=== PATIENT | male | born 1965 | race Caucasian/White ===

== ENCOUNTER 2020-08-02 08:12 | Outpatient (REF) | payer BC, SELFPAY | END 2020-08-02 08:13 | disposition home or self-care (01) | LOC: HO.LAB 08:12 | PROVIDERS: Visit Provider Internal Medicine | DX: Z20.828 Contact with and (suspected) exposure to other viral communicable diseases (principal) | CPT/HCPCS: 36415; C9803; U0003 ==

== ENCOUNTER 2024-02-03 17:06 | Emergency (ER) | payer OTHER, BC, SELFPAY ==
--- NOTE | ~2024-02-03 | US_ITS ---
EXAMINATION: US VENOUS ULTRASOUND WITH DOPPLER LOWER EXTREMITY, RIGHT CLINICAL INFORMATION: Lower extremity redness COMPARISON: None available. TECHNIQUE: Ultrasound of the deep veins is performed from the hip to the calf with compression sonography and color and pulse Doppler assessment. Spectral analysis with color-flow imaging is performed. FINDINGS: There is normal venous compression and respiratory variation and augmented flow. The visualized common femoral vein, superficial femoral vein, profunda femoral vein, popliteal vein, and the trifurcation region shows no evidence of deep venous thrombosis. There is no significant popliteal fossa cyst. If the patient's symptoms persist, followup ultrasound in 5 days 7 days might be of value to exclude proximal propagation from a non-visualized calf vein. US/US venous duplex LE RT IMPRESSION: No DVT demonstrated in the right lower extremity.
--- NOTE | ~2024-02-03 | XR_ITS ---
EXAMINATION: XR KNEE, RIGHT CLINICAL INFORMATION: Pain, swelling COMPARISON: None available. TECHNIQUE: Four views of the right knee. FINDINGS: No fracture or joint effusion. Alignment is anatomic. Mild medial compartment osteoarthritis. Patellar enthesophytes. No abnormal soft tissue calcification. XR/XR knee RT 4V IMPRESSION: Mild medial compartment OA. No acute fractures or dislocations. No joint effusion.
[2024-02-03 17:25] VITALS: BP 129/84; PULSE 69; RESP 20; TEMP 36.2; O2SAT 97; BMI 27.3
--- NOTE | 2024-02-03 17:26 | ED_ITS ---
HPI - Extremity Injury (Lower) General Chief Complaint: Extremity Injury, Lower Stated Complaint: Last sat, swollen calf from work injury Time Seen by Provider: 02/03/24 19:01 Source: patient Mode of arrival: ambulatory Limitations: no limitations History of Present Illness HPI Narrative: 58-year-old male presents for evaluation of pain to the right leg. Patient states that on January 27, while at work he was kneeling which he does repetitively and began to have pain at the right knee. He had some mild swelling at that time which has since resolved. Patient does repetitive use with kneeling to the right knee as part of his job. Has had edema and pain to this knee on and off for many years. Patient states the pain had resolved from the right knee but now his right calf was tender and swollen. There is no erythema. Denies any chest pain or shortness of breath. No dyspnea on exertion. No history of similar symptoms. Denies any repeat trauma. He has not tried any medication for this. Related Data Allergies Allergy/AdvReac Type Severity Reaction Status Date / Time No Known Allergies Allergy Verified 02/03/24 17:26 Review of Systems Constitutional: Constitutional: Denies chills and Denies fever(s) Cardiovascular: Cardiovascular: Denies chest pain, Denies dyspnea, Denies dyspnea on exertion and Denies orthopnea Respiratory: Respiratory: Denies cough, Denies dyspnea and Denies dyspnea on exertion Gastrointestinal: Gastrointestinal: Denies abdominal pain, Denies melena, Denies hematochezia, Denies diarrhea, Denies nausea and Denies vomiting Musculoskeletal: Musculoskeletal: Denies back pain, Denies muscle weakness and Denies numbness Integumentary/Breasts: Skin/Breast: Denies rash Neurologic: Denies focal weakness and Denies numbness Psychiatric: Psychiatric: Denies depression [facility] Past Medical History Attestation statement: The following information was validated with the patient. [facility] Narrative: Denies Social History Social History Advance Directives: No Advance Directives Information Provided: No Do you have a plan to hurt others: No Plan Physical Exam Vital Signs: Vital Signs: Last Vital Signs Temp 0 F L 02/03/24 20:01 Pulse 61 02/03/24 20:01 Resp 16 02/03/24 20:01 BP 153/94 H 02/03/24 20:01 Pulse Ox 98 02/03/24 20:01 O2 Del Method Room Air 02/03/24 20:01 BMI result Body Mass Index 27.3 Const: General: alert, awake and Physically active Extrem: Other: Patient is ambulatory in the emergency department without difficulty. He has full range of motion of the lower extremities. DP pulses are +1 and equal bilaterally. There is slight edema to the right calf when compared to the left. There is mild tenderness to the right calf. Negative Homans sign. There is no erythema or skin breakdown. There is fullness to the prepatellar right knee. No varus or valgus strain. Course Course Course Narrative: Patient is a 58-year-old male who presents emergency department for evaluation. He reports 1 week ago while at work he was doing frequent kneeling, he began noticing mild discomfort to the right knee. Subsequently over the past 5 days he has noticed progressive redness and swelling to the right calf. He admits to some intermittent discomfort to the calf. Reevaluation(s) Reevaluation #1: 7:50 p.m. the patient does not wish to wait for his official results of the x- ray and ultrasound. Patient understands that there may be findings that will require follow-up and is accepting of this and feels comfortable with discharge:. I have confirmed the patient's call back number, patient ambulatory at time of discharge. He has declined a work note no further questions at this time 9:55 p.m. imaging results returned, no acute process. I have contacted the patient and spoke with him directly to review the findings with him. Patient has no further questions at this time. Medical Decision Making Medical Decision Making [facility] Narrative: 58-year-old male with a 6 day history of right knee and right calf pain. Right knee pain has since resolved. Calf continues to be bothersome. Check x-ray of the right knee, ultrasound of the calf. Based on physical exam and history findings, suspect prepatellar bursitis due to the repetitive nature of his job. Patient is able to stand and bear weight. Differential Diagnosis Differential Diagnoses: The differential diagnosis associated with the presentation includes DVT Traumatic bursitis Muscle strain Fracture Continue Independent Interpretation I performed an independent interpretation of an: Plain X-Ray and Ultrasound Interpretation: X-ray right knee, no fracture, prepatellar fluid noted. Ultrasound right leg, no DVT Independent Historian Clinical information obtained from an independent historian. History obtained from or confirmed by: Spouse Prescription Management I considered prescription management with: Pain Medication (Patient denies) Discharge Plan Discharge Clinical Impression: Patellar bursitis of right knee Acute knee pain Qualifiers: Laterality: right Qualified Code(s): M25.561 - Pain in right knee Calf pain Qualifiers: Laterality: right Qualified Code(s): M79.661 - Pain in right lower leg Patient Disposition: Home, Self-Care Instructions: Knee Bursitis (ED), Knee Pain (ED), Leg Pain (ED) Additional Instructions: The official results of your x-ray and ultrasound are pending at this time. We will contact you if there are any concerns that require follow up. Rest. Avoid strenuous activity. Follow-up with your primary care provider. Call this week to schedule a follow- up appointment. Return to the emergency department if you have any worsening of symptoms, or any concerns. Get well soon! Interventions: ED Discharge Assessment Last Done: 02/03/24 20:01 Discharge Date/Time: 02/03/24 20:02 Print Language: Turkmen
[2024-02-03 18:00] VITALS: BP 153/94; PULSE 61; RESP 16; O2SAT 98
--- OUTSIDE RECORDS SUMMARY | 2024-02-03 19:17 | XMS_ITS | Continuity of Care Document ---
Author Organization [facility] Address [address] [place] [address]- Care Team Providers Care Cushion Assembler Name Role Phone Not on Staff, PCP Primary Care Physician Unavail able Encounter [facility] Date(s): 05/07/20 - 08/03/20 [facility] [address] [place] [address]- Attending Physician: Clarissa TOVAR, [place] Immunizations Given and Recorded Vaccine Date Status Refusal Reason Influenza Virus Vaccine (oldterm) 1 04/21/20 Recor ded 1Result Comment: [facility] [place]
--- OUTSIDE RECORDS SUMMARY | 2024-02-03 19:17 | XMS_ITS | Continuity of Care Document ---
Author Organization [facility] Address [address] [place] [address]- Care Team Providers Care Char Filter Tank Tender Head Name Role Phone Not on Staff, PCP Primary Care Physician Unavail able Encounter [facility] Date(s): 07/04/20 - 08/03/20 [facility] [address] [place] [address]- Attending Physician: Scott Anne Admitting Physician: Scott Anne Referring Physician: AdmScott escobedo Immunizations Given and Recorded Vaccine Date Status Refusal Reason Influenza Virus Vaccine (oldterm) 1 04/21/20 Recor ded 1Result Comment: [facility] [address] [place]
--- NOTE | 2024-02-03 19:32 | PC.NURSE ---
pt back from ultrasound at this time. pt waiting for xray to be completed.
[2024-02-03 20:01] VITALS: BP 153/94; PULSE 61; RESP 16; TEMP -17.7; TEMP 0; O2SAT 98
== END 2024-02-03 20:02 | disposition home or self-care (01) ==
PROVIDERS: Emergency Provider Emergency Medicine Emergency Medical Services; PCP Family Medicine
DX: M70.51 Other bursitis of knee, right knee (principal); Y93.9 Activity, unspecified; M25.561 Pain in right knee; M79.661 Pain in right lower leg
CPT/HCPCS: 73564; 93971; 99283; 99284

== ENCOUNTER 2025-07-09 08:27 | Outpatient (REF) | payer BC, SELFPAY ==
[2025-07-09 11:35] LABS: Hematocrit 44.8 % (42.0-52.0); Hemoglobin 15.5 g/dl (14.0-18.0); Mean Corpuscular HGB Conc 34.6 g/dl (31.0-36.0); Mean Corpuscular Hemoglobin 29.5 pg (27.0-33.0); Mean Corpuscular Volume 85.3 fL (80.0-98.0); NRBC Abs Auto 0.000 X10*3/uL (0.0-0.012); NRBC Pct Auto 0.0 /100WBC (0.0-0.2); Platelet Count 261 X10*3/uL (160-400); Red Blood Count 5.25 X10*6/uL (4.60-5.80); White Blood Count 5.2 X10*3/uL (4.8-10.8)
[2025-07-09 12:08] LABS: Microalbum/Creatinine Ratio Ur 4.8 ug/mg cr (<30)
[2025-07-09 12:12] LABS: Alanine Aminotransferase 75 U/L (0-40); Albumin Level 4.9 g/dL (3.5-5.0); Alkaline Phosphatase 80 U/L (39-117); Amylase 67 U/L (28-100); Anion Gap 12 (12-20); Aspartate Amino Transferase 38 U/L (5-37); Blood Urea Nitrogen 11 mg/dL (9-16); Calcium 9.3 mg/dL (8.4-10.2); Carbon Dioxide 28 mmol/L (22-29); Chloride 105 mmol/L (96-108); Estimated Glomerular Filt Rate > 60; Lipase 35 U/L (8-78); Potassium 4.0 mmol/L (3.3-5.1); Sodium 141 mmol/L (135-145); Total Protein 7.4 g/dL (6.5-8.0)
[2025-07-09 12:22] LABS: Folate 9.5 ng/mL (> or = 4.0); Vitamin B12 307 pg/mL (200-900)
[2025-07-14 17:28] LABS: Testosterone, Free 53.2 pg/mL (35.0-155.0)
== END 2025-07-09 08:28 | disposition home or self-care (01) ==
LOC: HO.WFDLDS 08:27
PROVIDERS: PCP Nurse Practitioner Family; Visit Provider Nurse Practitioner Family
DX: Z12.5 Encounter for screening for malignant neoplasm of prostate (principal); Z76.89 Persons encountering health services in other specified circumstances; I10 Essential (primary) hypertension; N40.0 Benign prostatic hyperplasia without lower urinary tract symptoms; N52.9 Male erectile dysfunction, unspecified; R06.81 Apnea, not elsewhere classified; G47.00 Insomnia, unspecified; R68.82 Decreased libido; F10.90 Alcohol use, unspecified, uncomplicated; Z86.19 Personal history of other infectious and parasitic diseases; Z79.899 Other long term (current) drug therapy
CPT/HCPCS: 36415; 80053; 82043; 82150; 82306; 82570; 82607; 82746; 83036; 83690; 84153; 84402; 84403; 84443; 85027; 96127

== ENCOUNTER 2025-07-09 08:27 | Outpatient (AMB) | payer BC, SELFPAY ==
--- NOTE | 2025-07-09 08:31 | MHC.PC.OV ---
Vital Signs 07/09/25 08:37 Height 6 ft 2 in Weight 218 lb 8 oz BMI 28.1 BP 134/78 Blood Pressure Location Lt brachial Position Sitting Respiration 12 Pulse 60 Pulse Source Pulse Oximeter Temp 97.7 F Temp Source Oral Pulse Oximetry (%) 99 Oxygen Delivery Method Room Air Intake Visit Reasons: Lyme Disease Intake Note: New patient to establish care. Junior Network Engineer Required: No Allergies No Known Allergies Allergy (Verified 07/09/25 08:39) Medication List - Last Reviewed 07/09/25 by Shanice Hackett MA hydrochlorothiazide 12.5 mg PO DAILY sildenafil 25 mg PO QAM tamsulosin mg PO triamcinolone acetonide 0.5% topical BID Tobacco use date assessed: 07/09/25 Dental Screening Dental Screen Date: 07/09/25 Did you have a dental visit in the last 12 months?: Yes Did you have a dental problem in the last 6 months where you did not have access to dental care?: No Was dental information given to patient?: Patient has dentist HPI HPI Comments History of Present Illness Details 60 y/o M with BPH, ED, HTN, Lymes 2024 Social: to Mindi (also my patient); works at [id number] Surgery: None Fhx: Mom alive w/ Dementia, HLD; Dad alive; 2 sisters alive and well; 1 dtr (M>F). PGF bone marrow cancer age 58. Health Maintenance Tdap 2019 Shingles UTD Flu Colon Specialists None History of Present Illness The patient is a 60-year-old male presenting to establish care. No records, [facility] Insomnia: - The patient reports a long-standing history of difficulty sleeping, noting he cannot recall the last time he was a good sleeper. - He wakes up at 4 a.m. almost every morning and is unable to fall back asleep at least 50% of the time. - When he does fall back asleep, he only gets about 30-45 minutes of rest before his alarm at 6 a.m. - He reports snoring and has woken himself up gasping for air. - He feels tired during the day and would nap if given the opportunity. - He has never had a sleep study. Low Libido: - The patient reports a low sex drive that has been declining over the past couple of years. Erectile Dysfunction: - The patient has a history of erectile dysfunction and takes sildenafil as needed. Benign Prostatic Hyperplasia: - The patient has a history of BPH and is treated with tamsulosin (Flomax). Type 2 Diabetes Mellitus: - The patient was diagnosed with type 2 diabetes but was never prescribed medication. - He manages his condition with diet, having cut out most sweets and reduced his alcohol intake. - He acknowledges he still consumes too much chocolate and carbohydrates. - His A1c has not been checked in the past year. Hypertension: - He has a history of hypertension and takes hydrochlorothiazide. - The patient forgot to take his medication this morning, but his blood pressure was 134/78 mmHg at the visit. Lyme Disease: - The patient was diagnosed with Lyme disease a few months ago after a tick bite on his right thigh, which developed into a classic bullseye rash. - He was treated with a 10-day course of doxycycline. - As of the visit, the rash has almost completely faded, and he feels okay. Past Medical History - Benign prostatic hyperplasia - Erectile dysfunction - Hypertension - Type 2 diabetes mellitus, diet-controlled - Lyme disease, treated with doxycycline - No history of surgeries. Review of Systems - General: Reports feeling tired during the day. - Respiratory: Reports snoring and episodes of gasping for air during sleep. Denies other respiratory symptoms. - Endocrine/Genitourinary: Reports a decline in libido over the past couple of years. Denies other endocrine symptoms. - Neurological: Reports chronic insomnia characterized by roaster helper awakenings. Denies other neurological symptoms. - Musculoskeletal/Extremities: Denies swelling in the ankles. Physical Exam General: Well developed, well nourished, in no acute distress. Appears stated age. Head: Normocephalic, atraumatic. Eyes: Pupils are equal, round and reactive to light and accommodation. Conjunctivae are clear. Scleras nonicteric Lungs: Clear to auscultation bilaterally. No rales, rhonchi or wheeze noted. Good air flow in all dumont. Heart: Regular rate and rhythm. No murmurs, click, rubs or gallops are noted. Pulses: Peripheral pulses are equal and palpable bilaterally. Extremities: No clubbing, cyanosis nor edema is noted. Psych: Mood and affect appropriate. Results Pending Medical Decision Making The patient is a 60-year-old male here to establish care, presenting with primary concerns of chronic insomnia and low libido. His symptoms of waking at 4 a.m., feeling tired, snoring, and gasping for air are highly suggestive of obstructive sleep apnea (MANJU). Untreated MANJU is a common cause of both sleep disruption and secondary hypogonadism, which could explain his low libido. To investigate these concerns, a comprehensive lab panel including a CBC, electrolytes, PSA, testosterone level, and an A1c will be ordered. The A1c is particularly important given his history of diet-controlled diabetes and the fact that it hasn't been checked in a year. Uncontrolled diabetes can also contribute to low libido. A referral for a home sleep study will be placed to formally evaluate for sleep apnea. His medications, including hydrochlorothiazide for hypertension, tamsulosin for BPH, and sildenafil for ED, will be refilled under my name to ensure continuity of care. His blood pressure is well-controlled at 134/78 mmHg, even without taking his medication this morning. A follow-up appointment is scheduled in approximately 7-8 weeks to review all lab and sleep study results and to conduct a full physical exam. Plan 1. Insomnia And Low Libido - The patient's symptoms of waking at 4 a.m., feeling tired, snoring, and gasping for air are concerning for obstructive sleep apnea (MANJU), which can also cause low libido and decrease testosterone. - Ordered labs including a blood count, testosterone level, and electrolytes to investigate potential underlying causes such as anemia or hormonal abnormalities. - A referral will be placed for a home sleep study through [facility] to evaluate for sleep apnea and other sleep-disordered breathing. 2. Type 2 Diabetes Mellitus - The patient has a history of diet-controlled diabetes, but his A1c has not been checked in over a year. - Labs ordered today include an A1c to assess his current glycemic control, as uncontrolled diabetes can contribute to his symptoms. 3. Health Maintenance - The patient is establishing care. Records from his previous provider, Dr. Cheung, will be requested again. - A PSA test was included in the lab orders for prostate cancer screening as per the patient's concern. - Prescriptions for hydrochlorothiazide, tamsulosin, and sildenafil will be sent to his pharmacy under my name to ensure continuity of care. - A follow-up appointment is recommended in 7-8 weeks to serve as his annual physical, review lab results, and go over the findings of the sleep study. - The patient was instructed on how to sign up for and use the [facility] patient portal for communication and to view results. Patient Instructions - Please go to the lab in this building to have your blood drawn today. - You will receive a call from the respiratory therapy department at [facility] to schedule an appointment to poultry picker a home sleep study machine. Please follow their instructions for the test. - Please sign up for the [facility] patient portal using the email link you will receive. This is the best way to communicate with our office, ask questions, and see your test results. - I have sent new prescriptions for your medications to your pharmacy. If the pharmacy calls to say they are ready, you can tell them you do not need them right now, as this is just to transfer the refills to my name. - Please schedule a follow-up appointment for about 7 to 8 weeks from now. We will review your lab and sleep study results and complete your annual physical at that time. - For urgent issues when our office is unavailable, you can use the walk-in clinics in [place] or [place]. Consent Patient was informed and verbally consented to the use of an ambient scribe for clinic note documentation during this visit. Total time spent caring for the patient today was 45 minutes. This includes time spent before the visit reviewing the chart, time spent during the visit, and time spent after the visit on documentation, reviewing laboratory results, diagnostic imaging, medications, performing a medically necessary evaluation, counseling on diagnoses, care coordination, ordering appropriate tests, ordering appropriate medications, review of tests performed by other providers, reporting test results with the patient, communication with other healthcare providers. 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 1. Little interest or pleasure in doing things: not at all 2. Feeling down, depressed, or hopeless: not at all 3. Trouble falling or staying asleep, or sleeping too much: nearly every day 4. Feeling tired or having little energy: several days 5. Poor appetite or overeating: not at all 6. Feeling bad about yourself - or that you are a failure or have let yourself or your family down: not at all 7. Trouble concentrating on things, such as reading the newspaper or watching television: not at all 8. Moving or speaking so slowly that other people could have noticed. Or the opposite - being so fidgety or restless that you have been moving around a lot more than usual: not at all 9. Thoughts that you would be better off or of hurting yourself in some way: not at all Total score: 4 Depression Screening Interpretation: Negative Depression Screening Done: Yes 52822 - PHQ-9 Billing: Yes Source: Developed by Drs. Dustin Tripathi, Frances Ramos, Adal Fox and colleagues, with an educational netta from [employer] Thrive Questionnaire Date Thrive assessed: 07/09/25 I am a: Patient What is your living situation today?: I have a steady place to live Within the past 12 months, did the food you bought not last and you didn't have the money to get more?: Never true Within the past 12 months, did you worry whether your food would run out before you got money to buy more?: Never true Do you have trouble paying for medicines?: No Do you have trouble getting transportation to medical appointments?: No Do you have trouble paying your heating and electricity bill?: No Do you have trouble taking care of your child, family member or friend?: No Do you have trouble with day-to-day activities such as bathing, preparing meals, shopping, managing finances, etc.?: No Are you currently unemployed and looking for a job?: No Are you interested in more education?: No Please select the resources that you would like help with: None Currently or been in a relationship where the following occur: No concerns reported THRIVE Score: 0 AUDIT C Alcohol Use Questionnaire (AUDIT-C) 1. How often do you have a drink containing alcohol?: 2-3 times a week 2. How many drinks containing alcohol do you have on a typical day when you are drinking?: 1 or 2 3. How often do you have six or more drinks on one occasion?: Less than monthly Total Score: 4 Score Reviewed/Action Taken: Yes ALONDRA-7 AMB Questionnaire ALONDRA-7 Date ALONDRA - 7 assessed: 07/09/25 Feeling nervous, anxious, or on edge: 0 = Not at all Not being able to stop or control worryin = Not at all Worrying too much about different things: 0 = Not at all Trouble relaxin = Not at all Being so restless that it is hard to sit still: 0 = Not at all Becoming easily annoyed or irritable: 0 = Not at all Feeling afraid as if something awful might happen: 0 = Not at all Total ALONDRA-7 score (0-4 normal; 5-9 mild; 10-14 moderate; 15-21 severe): 0 Source: Developed by Drs. Dustin Tripathi, Frances Ramos, Adal Fox and colleagues, with an educational netta from [employer] ALONDRA-7 Assessment Billing ALONDRA-7 Assessment Tool: ALONDRA-7 Assessment 67522 Physical exam (Primary Care) Vital Signs: Last Vital Signs Temp 97.7 F 07/09/25 08:37 Pulse 60 07/09/25 08:37 Resp 12 07/09/25 08:37 BP 134/78 07/09/25 08:37 Pulse Ox 99 07/09/25 08:37 Oxygen Delivery Method Room Air 07/09/25 08:37 BMI result Body Mass Index 28.1 Tobacco/Smoking Status: Tobacco use Status Tobacco use date assessed 07/09/25 07/09/25 08:35 Patient Tobacco Use Status Never used Tobacco 07/09/25 08:37 e-Cigarette/Vaping Use Never Used 07/09/25 08:37 PHQ-9: PHQ-9 Score PHQ-9: Total score 4 07/09/25 08:35 Depression Screening Interpretation: Negative Thrive Assessment: Date of Thrive Assessment Date Thrive assessed 07/09/25 07/09/25 08:35 Currently or been in a relationship where the following occur: No concerns reported Coding Level of Care Code New Pt Level 4 (93362) Add On Problem Visit Only Diagnoses Encounter to establish care with new provider Z76.89 Primary hypertension I10 Hypertension type: primary hypertension Benign prostatic hyperplasia without lower urinary tract symptoms N40.0 Lower urinary tract symptom presence: symptoms absent Erectile dysfunction, unspecified erectile dysfunction type N52.9 Erectile dysfunction type: unspecified Witnessed episode of apnea R06.81 Insomnia G47.00 Low libido R68.82 Alcohol use F10.90 History of Lyme disease Z86.19 Additional Codes ALONDRA-7 Assessment Billing - ALONDRA-7 Assessment Tool: ALONDRA-7 Assessment 72452 ([id number]) PHQ-9 - 99173 - PHQ-9 Billing: Yes ([id number]) Assessment & Plan Assessment & Plan (1) Encounter to establish care with new provider: Code(s): Z76.89 - Persons encountering health services in other specified circumstances (2) HTN (hypertension): Code(s): I10 - Essential (primary) hypertension Category: Medical Qualifiers: Hypertension type: primary hypertension Qualified Code(s): I10 - Essential (primary) hypertension (3) BPH (benign prostatic hyperplasia): Code(s): N40.0 - Benign prostatic hyperplasia without lower urinary tract symptoms Category: Medical Qualifiers: Lower urinary tract symptom presence: symptoms absent Qualified Code(s): N40.0 - Benign prostatic hyperplasia without lower urinary tract symptoms (4) Erectile dysfunction: Code(s): N52.9 - Male erectile dysfunction, unspecified Category: Medical Qualifiers: Erectile dysfunction type: unspecified Qualified Code(s): N52.9 - Male erectile dysfunction, unspecified (5) Witnessed episode of apnea: Code(s): R06.81 - Apnea, not elsewhere classified Category: Medical (6) Insomnia: Code(s): G47.00 - Insomnia, unspecified Category: Medical (7) Low libido: Code(s): R68.82 - Decreased libido Category: Medical (8) Alcohol use: Code(s): F10.90 - Alcohol use, unspecified, uncomplicated Category: Social Hx (9) History of Lyme disease: Onset Date: ~04/2025 Code(s): Z86.19 - Personal history of other infectious and parasitic diseases Category: Medical Plan , Orders: Orders Hemoglobin A1c Today I10 - Essential (primary) hypertension, N40.0 - Benign prostatic hyperplasia without lower urinary tract symptoms, N52.9 - Male erectile dysfunction, unspecified Complete Blood Count no Diff Today I10 - Essential (primary) hypertension, N40.0 - Benign prostatic hyperplasia without lower urinary tract symptoms, N52.9 - Male erectile dysfunction, unspecified Microalbumin, Random (w Creat) Today I10 - Essential (primary) hypertension, N40.0 - Benign prostatic hyperplasia without lower urinary tract symptoms, N52.9 - Male erectile dysfunction, unspecified Prostate Specific Antigen Scr Today I10 - Essential (primary) hypertension, N40.0 - Benign prostatic hyperplasia without lower urinary tract symptoms, N52.9 - Male erectile dysfunction, unspecified TSH reflex Free T4 Today I10 - Essential (primary) hypertension, N40.0 - Benign prostatic hyperplasia without lower urinary tract symptoms, N52.9 - Male erectile dysfunction, unspecified Vitamin D 25-OH Total Today I10 - Essential (primary) hypertension, N40.0 - Benign prostatic hyperplasia without lower urinary tract symptoms, N52.9 - Male erectile dysfunction, unspecified Testosterone, Free/Total Today I10 - Essential (primary) hypertension, N40.0 - Benign prostatic hyperplasia without lower urinary tract symptoms, N52.9 - Male erectile dysfunction, unspecified Amylase Today I10 - Essential (primary) hypertension, N40.0 - Benign prostatic hyperplasia without lower urinary tract symptoms, N52.9 - Male erectile dysfunction, unspecified Lipase Today I10 - Essential (primary) hypertension, N40.0 - Benign prostatic hyperplasia without lower urinary tract symptoms, N52.9 - Male erectile dysfunction, unspecified Comprehensive Met. Panel Today I10 - Essential (primary) hypertension, N40.0 - Benign prostatic hyperplasia without lower urinary tract symptoms, N52.9 - Male erectile dysfunction, unspecified Vitamin B12 and Folate Today I10 - Essential (primary) hypertension, N40.0 - Benign prostatic hyperplasia without lower urinary tract symptoms, N52.9 - Male erectile dysfunction, unspecified RT home sleep study Today R06.81 - Apnea, not elsewhere classified, R06.83 - Snoring Medications: New triamcinolone acetonide 0.5% 1 appl topical BID 15 grams 4RF hydrochlorothiazide 12.5 mg PO DAILY 90 caps 0RF sildenafil 25 mg PO QAM 90 tabs 2RF tamsulosin 0.4 mg PO DAILY 90 caps 2RF Patient Instructions: Walk-In Care (Urgent Care): We Make it Easy Walk-in for urgent medical issues such as: ? Seasonal Allergies ? Insect Bites ? Cough ? Diarrhea ? Acute Asthma Attacks ? Back, Knee or Joint Pain ? Ear Infection ? Fever without a Rash ? Headaches ? Nausea ? Milnor Eye, Rash or Skin Irritation ? Sore Throat ? Sports Physicals ? Vomiting Most insurances are accepted. Patients do not need to be part of the [facility] to seek care at the walk-in clinic. Locations [address] [place] [address] Open Tuesday through Tuesday 8am-5pm *Hours may vary due to staffing availability. To confirm Walk-In Care hours please call. [facility] , [place] [address] ? [phone] [facility] Walk-In Care in [place] provides services to ages 18 and over. Open Tuesday-Tuesday: 7 a.m. to 5 p.m. and Tuesday: 9 a.m. to 3 p.m.* *Hours may vary due to staffing availability. To confirm Walk-In Care hours in [place], please call [phone]. [address] [place] [address] ? [phone] [facility] Walk-In Care in [place] provides services to ages 12 and over. Open Tuesday-Tuesday: 8 a.m. to 5 p.m. Hours may vary due to staffing availability. To confirm Walk-In Care hours in [place], please call [phone]. LABORATORY SERVICES: [facility] Lab ? Primary Location [address] [place] [address] Tuesday through Tuesday 6:00 AM ? 5:00 PM Tuesday 7:00 AM ? 11:00 AM* [phone] The [facility] Lab is centrally located near the front entrance of the [facility] for easy outpatient access. Convenient parking is provided for outpatients. *Hours may vary due to staffing availability. To confirm Laboratory hours for any location, please call [phone]. Offsite Location For your convenience, we offer offsite laboratory draw stations at the following locations: [address] [facility] [place] ? [facility] [address] [facility], [address], [place] Tuesday through Tuesday 7:30 AM ? 1:00 PM* [phone] *Hours may vary due to staffing availability. To confirm Laboratory hours for any location, please call [phone]. [place] ? [facility] [address] [facility], [place] Tuesday through Tuesday 6:00 AM ? 3:30 PM* Tuesday 6:30 AM ? 3 PM* [phone] *Hours may vary due to staffing availability. To confirm Laboratory hours for any location, please call [phone]. [address] [facility] Tuesday through Tuesday 7:30 AM ? 4:00 PM* [phone] *Hours may vary due to staffing availability. To confirm Laboratory hours for any location, please call [phone] [place] [address] Tuesday through 9:00 AM ? 4:00 PM* *Hours may vary due to staffing availability. To confirm Laboratory hours for any location, please call [phone]. Appointments are not necessary. Walk-ins are welcome. Like all the departments throughout the [facility], our Lab undergoes frequent reviews to ensure the quality and accuracy of test results, and our staff takes special pride in its status as a nationally accredited facility. Patient Portal: [facility] ONE PATIENT. ONE RECORD. BETTER CARE. [facility] has a fully integrated, cutting-edge mobile electronic health information system that has revolutionized the way we care for our patients and manage our organization. This system improves communication and coordination enabling us to provide safe, higher-quality care, and an overall positive experience for staff and patients. Our first priority, as always, is to deliver the highest quality care possible. The system is running in the background supporting that priority. This portal is for all [facility] services and practices. If you are experiencing any technical difficulties with enrolling or logging into the Patient Portal please complete the [facility] Patient Portal Technical Support Form. [facility] now offers a new secure on-line interactive tool for patients to review their health information ? ?Patient Portal. This interactive web portal will enable patients and their families to take an active role in their care by providing easy, secure access to their health information via the internet. The Patient Portal provides patients with instant access to their health information, including laboratory results, medications, allergies, demographic information, visit history, and more. In addition to managing their own care, parents and health care proxies with authorized consent will appreciate the ability to access the records of those individuals for whom they provide care. Please note: if you wish to gain access (Proxy) to another patient?s portal, you will be required to come to the Medical Records Department in person at [facility]. Both the patient giving proxy access and the proxy will need to provide photo identification and complete the appropriate authorization. The Patient Portal also allows track their appointments online. The [facility] Patient Portal also saves patients time by allowing them to submit updates to their demographic and contact information prior to their visits. Portal email notifications will also alert patients to any new activity on their portal, such as test results and new appointments. In order to initially enroll in the [facility] Patient Portal, you will need to enter some required information including the following: your [facility] Medical Record number your personal home email address name date of Please note: In order to enroll in the [facility] Patient Portal, we need to have your email address on file in your electronic medical record. ?The email address needs to be specific for one person (yourself) in order for your Portal enrollment to be successful. ?You can update your email address in person with our Registration staff when you are registering for a hospital visit. ?Otherwise, you will need to come to the Health Information Management (Medical Records) Department at [facility]. ?We are open from Tuesday ? Tuesday from 7:30 a.m. ? 4:30 p.m. ?You will be required to present a photo id. Once you have successfully enrolled in the Patient Portal, you will receive a one-time user id and password for the Portal, sent to your email address. ?This will allow you to log into the Patient Portal within 99 hrs and reset your own logon id and password, and define personal security questions. ?Once your permanent login and password have been set, you can log into the [facility] Patient Portal at any time via the blue button above or from the Portal Logon button on any page of the [facility] website. [facility] and [facility] encourage all of our patients to enroll in Patient Portal as it presents a valuable opportunity for patients and their families to actively participate in their care and stay healthy Welcome to [facility]. ?We look forward to working with you.
[2025-07-09 08:37] VITALS: BP 134/78; PULSE 60; RESP 12; TEMP 36.5; O2SAT 99; BMI 28.1
--- OUTSIDE RECORDS SUMMARY | 2025-07-09 08:54 | XMS_ITS | Clinical Summary ---
Author Organization [facility] Address [address] [place] [phone] Phone Care Team Providers Care Nursing Assistant Name Role Phone Nimisha Cheung MD, MPH Unavailable [phone] Pcp, Unknown Primary Care Provider Unavailabl e Allergies No known active allergies Medications cyclobenzaprine (FLEXERIL) 5 MG tablet Take 1 tablet (5 mg total) by mouth nightly at bedtime as needed (muscle spasms). 10 tablet 5 Active hydroCHLOROthiaz romulo 12.5 mg capsuleIndicatio ns:Essential hypertension TAKE ONE CAPSULE BY MOUTH EVERY DAY 90 capsule 3 5 Active tamsulosin (FLOMAX) 0.4 mg Cap TAKE 1 CAPSULE BY MOUTH DAILY. 30 capsule 3 5 Active triamcinolone acetonide 0.5 % ointment Apply topically 2 (two) times a day. 30 g 2 5 Active sildenafiL (VIAGRA) 25 mg tabletIndication s:Erectile dysfunction, unspecified erectile dysfunction type Take 1 tablet (25 mg total) by mouth every morning. 10 tablet 6 5 Active triamcinolone acetonide 0.5 % ointment Apply topically 2 (two) times a day. 30 g 2 4 06/15/20 25 Discontin ued(Reord er) sildenafiL (VIAGRA) 25 mg tabletIndication s:Erectile dysfunction, unspecified erectile dysfunction type TAKE 1 TABLET (25 MG TOTAL) BY MOUTH DAILY NEEDED 10 tablet 6 5 06/15/20 25 Discontin ued(Reord er) Active Problems Problem Noted Date Diagnosed Date Type 2 diabetes mellitus wit hout complication, without long-term current use of insulin 10/20/2022 Assessment & Plan (06/08/2023 10:32 AM EST): Doing really well with dietary changes. Counseled on eye exams Assessment & Plan (10/20/2022 10:33 PM EDT): This is a new diagnosis based on elevated fasting glucose. Discussed option of starting metformin but he would rather try to do lifestyle management which I fully support. Elevated liver function tests 10/20/2022 Assessment & Plan (06/08/2023 10:31 AM EST): Improved since cutting back on alcohol. Keep up with the good changes! Assessment & Plan (10/20/2022 10:32 PM EDT): Alcohol may be contributing but given stability, will get labs and US eval. Counseled on likely LOMELI, importance of modest weight loss for this and avoiding heavy alcohol consumption. Dyshidrotic eczema 06/08/2022 Assessment & Plan (06/08/2023 10:32 AM EST): Poorly controlled. Reviewed preventive measures. Will increase steroid strength. Assessment & Plan (06/08/2022 3:44 AM EST): Wear gloves as much as able to limit hand washing. Triamcinalone for two weeks followed by one week break as needed. Erectile dysfunction 05/26/2022 Assessment & Plan (09/01/2022 10:06 PM EST): Doing well now with increased confidence. If does feel the need to try viagra again, would recommend trying 50mg. Essential hypertension 05/26/2022 Assessment & Plan (06/08/2023 10:32 AM EST): Well controlled, cont current meds Assessment & Plan (10/20/2022 10:31 PM EDT): Controlled but want tighter control with DM diagnosis. Weight mgmt and regular cardiovascular exercise encouraged Assessment & Plan (09/01/2022 10:05 PM EST): Improved on 12.5mg HCTZ but still not within goal. At this time we will focus on life style with cutting back on salty chips and adding small amounts of cardiovascular exercise in a few times a week. I have encouraged him to start small- doing a couple extra flights of stairs before work, walking during a lunch break for 10 min. Low libido 06/30/2020 Assessment & Plan (06/30/2020 12:38 PM EST): Reassurance provided that most of the symptoms he is describing are normal aging and not concerning for organic problems. Lower urinary tract symptoms (LUTS) 06/30/2020 Assessment & Plan (10/24/2024 12:46 PM EDT): Orders: Urinalysis w/reflex Urine Culture; Future Assessment & Plan (06/08/2023 10:30 AM EST): Stable, still not interested in medication Assessment & Plan (06/30/2020 12:38 PM EST): Very mild symptoms at this time, will check PSA. No medication needed at this time. Alcohol consumption binge drinking 06/30/2020 Assessment & Plan (10/20/2022 10:31 PM EDT): Counseled on the importance of limiting alcohol with liver function test findings Assessment & Plan (06/30/2020 12:40 PM EST): No evidence of dasia alcoholism, but occasional binges. We reviewed recommended limits for maximizing health and ways to do this without giving up social aspects of alcohol. Encounters Date Type Department Care Team Description 05/23/2025 8:40 AM EDT Office Visit [facility] [address] [place] [address] Melany Butler MD Type 2 diabetes mellitus without complication, without long-term current use of insulin (Primary Dx); Erythema migrans (Lyme disease) 05/08/2025 3:50 PM EDT Office Visit [facility] at [address] [address] Smitha Pérez, CHRISTINA Erythema migrans (Lyme disease) (Primary Dx) from Last 3 Months Immunizations Immunization Administration Dates Next Due INFLUENZA, SPLIT VIRUS, TRIVALENT PF 06/13/2024 Influenza Quadrivalent MDCK Preservative Free IM 06/08/2022,04/21/2020,04/21/2018 Influenza Quadrivalent MDCK w/Preservative IM 05/04/2019 Influenza, Unspecified Formulation 05/23/2020 Influenza, whole 04/21/2020 Td (adult),2 Lf Tetanus Toxo id, PF, Adsorbed 06/30/2020 Family History Medical History Relation Comments Alcohol use disorder Father Diabetes Father Dementia Mother Hyperlipidemia Mother Leukemia Paternal Grandfather No Known Problems Sister 1 No Known Problems Sister 2 Kawasaki disease Son Breast cancer Neg Hx Colon cancer Neg Hx Heart disease Neg Hx Hypertension Neg Hx Prostate cancer Neg Hx Relation Status Comments Father Alive doesn't have muc h contact Maternal Grandfather Other Mother Alive Paternal Grandfather Sister 1 Alive Sister 2 Alive Son Alive Social History Tobacco Use Types Packs/Day Years Used Date Smoking Tobacco: Former Cigarettes 1 6 1 08/31/1981 - 06/30/1988 Smokeless Tobacco: Never Tobacco Cessation:Counseling Given: Not Answered Alcohol Use Standard Drinks/Week Comments Yes 4 (1 standard drink = 0.6 oz pur e alcohol) Child or Family Care Answer Date Record ed Do you have problems with on e of the following making it difficult for you to work, study, or receive health care? No 06/13/2024 Education Answer Date Recorded Are you interested in help w ith more adult education (for example, completing high school, GED, job training, learning the Filipino language, technical skills, or developing parenting skills)? No 06/13/2024 Are you concerned about learning? Not on file 06/13/2024 No 06/13/2024 Yes 06/13/2024 Food Answer Date Recorded Within the past 6 months we worried whether our food would run out before we got money to buy more. Never True 06/13/2024 Within the past 6 months the food we bought just didn't last and we didn't have enough money to get more. Never True Residential Stability Answer Date Recor ded What is your housing situation today? I have phuc santana 06/13/2024 How many times have you move d in the past 12 months? Zero (I did not move) 06/13/2024 Paying for Meds Answer Date Recorded Do you have trouble paying for medicines? No 06/13/2024 Paying Utility Bills Answer Date Record ed Do you have trouble paying your heating or elect ricity bill? No 06/13/2024 Transportation Answer Date Recorded Has the lack of transportati on kept you from medical appointments or from getting medications? No 06/13/2024 Unemployment Answer Date Recorded Are you currently unemployed or working on a part-time or temporary basis, and looking for work? No 05/23/2022 Digital Access Answer Date Recorded No 06/13/2024 Yes 06/13/2024 Do you have reliable internet access at home? Ye s 06/13/2024 Do you have a device (e.g., phone, tablet, computer) with a working camera? Yes 06/13/2024 Intimate Partner Violence Answer Date R ecorded Denied Basic Needs Not on file 06/13/2024 In the past 12 months have y ou been in a relationship with a person who hurts, threatens, or tries to control you? No 06/13/2024 Worried food would run out Not on file 06/13 In the past 12 months have y ou been in a relationship with a person who hurts, threatens, or tries to control you? No 06/13/2024 Sex and Gender Information Value Date Recorded Sex Assigned at Male 06/30/2020 10:26 AM EST Legal Sex Male 9:40 AM EST Gender Identity Male 06/30/2020 10:26 AM EST Sexual Orientation Straight 06/30/2020 10 :26 AM EST Last Filed Vital Signs Vital Sign Reading Time Taken Comments Blood Pressure 104/76 05/23/2025 8:20 AM EDT Pulse 66 05/23/2025 8:20 AM EDT Temperature 37.2 C (98.9 F) 05/08/2025 4:05 PM EDT Respiratory Rate 18 05/08/2025 4:05 PM EDT Oxygen Saturation 99% 05/23/2025 8:20 AM EDT Inhaled Oxygen Concentration - - Weight 98.3 kg (216 lb 12.8 oz) 05/23/2025 8:20 AM EDT Height 187 cm (6' 1.62 ) 10/24/2024 10: 30 AM EDT Body Mass Index 28.12 10/24/2024 10:30 AM EDT Plan of Treatment Health Maintenance Due Date Last Done Comments PNEUMOCOCCAL VACCINES (50+ years) (1 of 2 - PCV) 1984 COLOGUARD 2010 COLONOSCOPY 2010 COLORECTAL CANCER SCREENING 2010 FIT TEST 2010 FOBT 2010 SIGMOIDOSCOPY 2010 VIRTUAL COLONOSCOPY 2010 DIABETIC EYE EXAM 10/21/2022 COVID-19 VACCINE ( season) 2025 08/06/2021, 11/24/2020, 10/20/2020 HEMOGLOBIN A1C 05/16/2025 11/14/2024, 05/25, 11/23/2023, Additional history exists LIPID PANEL 06/04/2025 06/04/2024, 05/0 07/2023, 09/23/2022, Additional history exists DEPRESSION SCREENING 06/13/2025 06/13/2024 POTASSIUM LEVEL 11/14/2025 11/14/2024, 05/25, 11/23/2023, Additional history exists URINE MICROALBUMIN/CREATININE RATIO 11/14/2025 11/14/2024, 11/23/2023, 10/21/2022, Additional history exists BLOOD PRESSURE 11/21/2025 05/23/2025 Adult Td,Tdap Booster 06/30/2030 06/30/2020 RSV VACCINE (1 - 1-dose 75+ series) 2040 HIV ONE-TIME SCREENING (18-65 YEARS) Completed 07/09/2020 HEPATITIS C SCREENING Completed 10/21/2022, 020 ZOSTER VACCINES Completed 12/11/2024, 09/17/2024 INFLUENZA VACCINE Completed 04/03/2025, , 06/08/2022, Additional history exists SMOKING STATUS SCREENING (Once After 26 Yrs) Completed 05/23/2025 HEPATITIS A VACCINES Aged Out No long er eligible based on patient's age to complete this topic HIB VACCINES Aged Out No longer eligi ble based on patient's age to complete this topic MENINGOCOCCAL VACCINES (ACWY) Aged Out No longer eligible based on patient's age to complete this topic MENINGOCOCCAL VACCINES (B) Aged Out N o longer eligible based on patient's age to complete this topic Medical Devices Not on file Procedures Procedure Name Priority Date/Time Associated Diagnosis Comments MICROALBUMIN/CREATININ E RATIO, RANDOM URINE Routine 11/14/2024 10:21 AM EDT Type 2 diabetes mellitus without complication, without long-term current use of insulin HEMOGLOBIN A1C Routine 11/14/2024 10:06 AM EDT Type 2 diabetes mellitus without complication, without long-term current use of insulin COMPREHENSIVE METABOLIC PANEL (CMP) Routine 11/14/2024 10:06 AM EDT Type 2 diabetes mellitus without complication, without long-term current use of insulin LIPID PANEL Routine 06/04/2024 1:10 PM EST Type 2 diabetes mellitus without complication, without long-term current use of insulin HEPATITIS B SURFACE ANTIGEN Routine 10/21/2022 9:42 AM EDT Elevated liver function tests from Last 3 Months or Most Recently Relevant to Health Maintenance Results * Microalbumin/creatinine ratio, random urine (11/14/2024 10:21 AM EDT) URINE MICROALBUMIN <1.2 0 - 2.3 mg/dL [facility] URINE CREATININE 60 mg/dL [facility] MICROALB/CRE RATIO NOT CALCULATED 0 - 20 mg/g Cre [facility] Comment:due to Microalbumin <1.2 Urine (Urine) 11/14/2024 10: 21 AM EDT 11/14/2024 10:22 AM EDT us Nimisha Cheung MD, MPH LAB URINE ORDERABLES Final Result [address] [address] * (ABNORMAL) Comprehensive metabolic panel (11/14/2024 10:06 AM EDT) SODIUM 141 133 - 146 mmol/L [facility] POTASSIUM 4.7 3.3 - 5.1 mmol/L [facility] CHLORIDE 102 96 - 108 mmol/L [facility] CO2 29 21 - 35 mmol/L [facility] BUN 16 6 - 19 mg/dL [facility] CREATININE 0.90 0.5 - 1.5 mg/dL [facility] GLUCOSE 132(H) 70 - 99 mg/dL [facility] ALBUMIN 4.8 3.9 - 4.8 g/dL [facility] TOTAL PROTEIN 7.5 6.5 - 8.0 g/dL [facility] CALCIUM 9.7 8.4 - 10.3 mg/dL [facility] ALKALINE PHOSPHATASE 76 39 - 117 U/L [facility] TOTAL BILIRUBIN 0.8 0.0 - 1.2 mg/dL [facility] AST 25 0 - 37 U/L [facility] ALT 33 0 - 40 U/L [facility] GLOBULIN 2.7 1 - 4.8 g/dL [facility] EGFR 98 >59 mL/min/1.7 3m2 [facility] Comment:Estimated glomerular filtration rate calculated using the CKD-EPI refit equation. ANION GAP 15 10 - 20 mmol/L [facility] Blood 11/14/2024 10:0 6 AM EDT 11/14/2024 10:13 AM EDT us Nimisha Cheung MD, MPH LAB BLOOD BKR ORDERA BLES Final Result [address] [address] * (ABNORMAL) Hemoglobin A1c (11/14/2024 10:06 AM EDT) HEMOGLOBIN A1C 6.1(H) 4.3 - 5.8 % [facility] Blood 11/14/2024 10:0 6 AM EDT 11/14/2024 10:13 AM EDT us Nimisha Cheung MD, MPH LAB BLOOD BKR ORDERA BLES Final Result Performing Organization Address [facility]/ZIP Co de Phone Number [address] [address] * (ABNORMAL) Lipid panel (06/04/2024 1:10 PM EST) HDL 50 mg/dL [facility] Comment: Interpretation <40 mg/dL: Low HDL cholesterol (major risk factor for CHD) Greater than or equal to 60 mg/dL: High HDL cholesterol ( negative risk factor for CHD) HDL - cholesterol is affected by a number of factors, e.g. smoking, excerise, hormones, sex and age. CHOLESTEROL 250(H) 0 - 240 mg/dL [facility] TRIGLYCERIDES 281(H) 30 - 160 mg/dL [facility] LDL 144(H) 50 - 129 mg/dL [facility] Comment: LDL levels in terms of risk for coronary heart disease: <100 mg/dL: Optimal 100-129 mg/dL: Near or above optimal 130-159 mg/dL: Borderline high 160-189 mg/dL: High >190 mg/dL: Very High CARDIAC RISK RATIO 5.0 3.4 - 5.0 C [facility] Blood 06/04/2024 1:10 PM EST 06/04/2024 1:13 PM EST Nimisha Cheung MD, MPH LAB BLOOD BKR ORDERA BLES Final Result Performing Organization Address City/[facility] Co de Phone Number [address] [address] * Hepatitis B surface antigen (10/21/2022 9:42 AM EDT) HBV SURFACE ANTIGEN NON-REACTI VE NON-REACTI VE [facility] Blood 10/21/2022 9:42 AM EDT 10/21/2022 9:46 AM EDT Result [facility] Nimisha Cheung MD, MPH LAB BLOOD BKR ORDERA BLES Final Result [address] [address] from Last 3 Months or Most Recently Relevant to Health Maintenance Insurance BLUE CROSS OUT OF STATE PPO BLUE CROSS OUT OF [facility] PPO BLUE CROSS OUT OF STATE PPO BLUE CROSS OUT OF STATE PPO BLUE CROSS OUT OF STATE PPO BLUE CROSS OUT OF STATE PPO BLUE CROSS OUT OF STATE PPO BLUE CROSS OUT OF [facility] PPO BLUE CROSS OUT OF STATE PPO [facility] Care Teams Nursing Assistant Relationship Specialty Start Date End Date Pcp, Unknown PCP - General 06/17/25 Nimisha Cheung MD, MPH [address] [place] [id number] [email or web address] Insurance Assigned Provider 10/29/23 Additional Source Comments The information contained in this document represents components of the legal health record. It is not the complete legal health record.[facility]
--- OUTSIDE RECORDS SUMMARY | 2025-07-09 08:54 | XMS_ITS | Patient Health Record ---
Author Organization [facility] Address [address] [place] [address] Care Team Providers Care Mechanical Systems Designer Name Role Phone Heather (RETIRED) Patricio TOVAR Primary Care Provide r Unavailable Dustin Malagon Unavailable [phone] Reason For Referral No Information Medications Medication SIG (Take, Route, Frequency, Duration) Notes Start Date End Date Status Suprep Bowel Prep 1 kit Solution as directed Orally as directed; Duration: 1 dose 06/21/2015 Activ e Social History Social History Additional Details Category Social Info Options Details Miscellaneous: Marital status: single 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 [place], [place] [phone] [id number] ANGELA [employer] Self - patient is the insured Medical (General) History Medical History History ICD Code Denies MD,DM,CVA,Lung disease,renal dise ase
--- OUTSIDE RECORDS SUMMARY | 2025-07-09 08:54 | XMS_ITS | Encounter Summary ---
Author Organization [facility] Address [address] [place] [address] Phone Care Team Providers Care Product Development Assistant Name Role Phone Nimisha Cheung MD, MPH Primary Care Provid er Nimisha Cheung MD, MPH Unavailable [phone] Pcp, Unknown Primary Care Provider Unavailabl e Reason for Visit * Reason Onset Date Comments Appt request 10/23/2024 Encounter Details Date Type Department Care Team (Late st Contact Info) Description 10/23/2024 Nurse Triage [facility] [address] [place] [address] Nimisha Cheung MD, MPH [address] [place] [address] [email or web address] Appt request Social History Tobacco Use Types Packs/Day Years Used Date Smoking Tobacco: Former Cigarettes 1 6 1 08/31/1981 - 06/30/1988 Smokeless Tobacco: Never Alcohol Use Standard Drinks/Week Comments Yes 4 [...] high school, GED, job training, learning the [place] language, technical skills, or developing parenting skills)? [...] your housing situation today? I have phuc sing 06/13/2024 How many times have you move [...] Orientation Straight 06/30/2020 10 :26 AM EST documented as of this encounter Progress Notes * Cheryl Jaime RN - 10/23/2024 4:03 PM EDT S/W Ronn. He has been struggling with intermittent lower back pain for the past few weeks. He advised when he is up and moving around like at work, he feels fine. Work is physically demanding so he is moving around a lot, lifting heavy boxes. He notes the pain starts when he sits down to take a break. Pt will go to stand back up, and pain will start to lwoer back. He notes it also happens if he moves funny when lying in bed as well. The pain will continue on, and eventually resolve on its own. He does note he has been using a heating pad at night and this does help the pain. Advised pt should be seen. Did advise this does not sound like kidney pain in absence of urinary sxand pain pt is describing. Sick visit sched for tomorrow @ 10:40am with PCP. Nurse Triage Encounter Note Reason for Triage Ronn Fuentes contacted office for Other Call Disposition Schedule Visit Within 2 Business Days Disposition Comments: Patient/caregiver understands and will follow disposition: Yes Initial Symptom Screening and Assessment IA Symptom Onset More than a week Symptom Severity Moderate - interferes with normal activities Symptom Pattern Intermittent (comes and goes) Aggravating factors or triggers Unsure Home Treatments Rest; Heat Comments Worse with sitting Location? Back Location Comments Lower back Fever? No Extremities Neck/Back Symptoms (Musculoskeletal) Musculoskeletal Symptoms Back pain Musculoskeletal Injury? No Did you fall? No Recurrant symptom or condition? No Does the pain radiate to elsewhere? No Weakness? No Numbness or loss of sensation? No Care Advice Patient/Caregiver understands and will follow care advice?: Yes, plans to follow advice Flank [id number] Cheryl Jaime RN [facility] Oct 23, 2024 04:14 PM Disposition and First Aid SEE IN OFFICE OR VIDEO VISIT TODAY OR TOMORROW: * You need to be examined or have a video telemedicine visit. * PCP OFFICE VISIT: Let me give you an appointment. * TRIAGER OPTION - MAKE VIDEO VISIT APPOINTMENT: I am going to set up a video telemedicine visit for you. * IF NO AVAILABLE OFFICE OR VIDEO APPOINTMENTS: You need to be seen in an Urgent Care Center. Go tothe one at [facility]. Go there today. A nearby Urgent Care Center is often a good source of care. USE HEAT AFTER 48 HOURS FOR PAIN: * If pain lasts over 48 hours (2 days), put heat on the sore area. * Use a heat pack, heating pad, or warm wet washcloth. * Do this for 10 minutes three times a day. * This will help increase blood flow and improve healing. * Caution: burn. Do not sleep on a heating pad. CALL BACK IF: * Fever over 100.4 F (38.0 C) * Burning with urination or blood in urine * Pain lasts over 3 days * You become worse Patient will call back with additional questions or if symptoms change or worsen Cheryl Jaime RN Reason for Disposition and Assessment Reason for Disposition Patient wants to be seen Protocols used: Flank [id number] * Sue Goyal - 10/23/2024 9:22 AM EDT PT lm on the triage line. Reports that he has had kidney pain for a few weeks, and would like to schedule a follow up. Please advise. Central Support Executive Steward (Please do not reply to this user; this inbox is not monitored.) Thank you. documented in this encounter Plan of Treatment Not on file documented as of this encounter Visit Diagnoses Not on filedocumented in this encounter Additional Health Concerns Assessment Noted Time PHQ-2 Depression Total Score: 0 06/13/20 8:07 AM EST documented as of this encounter Care Teams Product Development Assistant Relationship Specialty Start Date End Date Nimisha Cheung MD, MPH [address] [place] [id number] PCP - General Family Medicine 06/30/20 06/16/25 Pcp, Unknown PCP - General 06/17/25 Nimisha Cheung MD, MPH [address] [place] [id number] Insurance Assigned Provider 10/29/23 documented as of this encounter Additional Source Comments The information contained in this document represents components of the legal health record. It is not the complete legal health record.[facility]
== END 2025-07-09 08:59 | disposition home or self-care (01) ==
LOC: HO.HMCFM 08:28
PROVIDERS: PCP Nurse Practitioner Family; Visit Provider Nurse Practitioner Family
DX: Z76.89 Persons encountering health services in other specified circumstances (principal); I10 Essential (primary) hypertension; N40.0 Benign prostatic hyperplasia without lower urinary tract symptoms; N52.9 Male erectile dysfunction, unspecified; R06.81 Apnea, not elsewhere classified; G47.00 Insomnia, unspecified; R68.82 Decreased libido; F10.90 Alcohol use, unspecified, uncomplicated; Z86.19 Personal history of other infectious and parasitic diseases